=== PATIENT | male | born 1955 | race Caucasian/White ===

== ENCOUNTER 2016-07-05 23:43 | Emergency (ER) | payer BC, MEDICARE ==
[2016-07-05] MEDS ORDERED: Sodium Chloride 0.9% 1000 ML 1,000 ML IV SCH (23:45)
[2016-07-05] MEDS ORDERED: Phenergan 25 MG INJ IV ONE (23:54)
--- NOTE | 2016-07-05 23:57 | ERPHSYRPT ---
- History of Present Illness Time Seen by Provider: 07/05/16 23:49 Source: patient Exam Limitations: no limitations Patient Subjective Stated Complaint: PATIENT BECAME DIZZY HEAD FELT FUIZZY LIOGHTHEADEDNESS AND TRAVELED FROM HIS KNECK RTO HIS ARMS WHEN HE LAID DOWN Triage Nursing Assessment: PT ALERT AND ORIENTED X3, HAND CANDY DIPPER HAND STRONG AND EQUAL , FACIAL SYMETRY INTACT, SPEECH CLEAR NO DIFFICULTY ENNUNCIATING OR EXPRESSING THOUHTS. LEG STRENGTH GOOD AND INTACT BIALTERAL Physician History: ABOUT 2.5 HOURS AGO PT STARTED WITH DIZZINESS(OFF BALANCE) WITH DYSESTHESIA OF BOTH UPPER EXTREMITIES. PT ALSO C/O NASAL CONGESTION AND COUGH FOR THE PAST WEEK. PT DENIES FEVER, NAUSEA, VOMITING, ABDOMINAL PAIN, CHEST PAIN, SHORTNESS OF AIR. Allergies/Adverse Reactions: No Known Drug Allergies Allergy (Verified 02/02/16 21:33) Home Medications: Amitriptyline HCl 10 mg [Elavil 10 mg] 100 mg PO HS 05/04/14 [History] Clonazepam [Klonopin] 1 mg PO BID 05/04/14 [History] Esomeprazole Magnesium [Nexium] 40 mg PO HS 05/04/14 [History] Glipizide 10 mg [Glucotrol 10 MG] 10 mg PO BID 05/04/14 [History] Insulin Glargine [Lantus Insulin] 30 units SQ HS 05/04/14 [History] Paroxetine HCl [Paxil] 20 mg PO DAILY 05/04/14 [History] Simvastatin 40 mg PO HS 05/04/14 [History] Gabapentin 600 mg PO TID 11/21/15 [History] Levothyroxine Sodium 150 Mcg [Synthroid 150 Mcg] 150 mcg PO DAILY 11/21/15 [History] Losartan Potassium 50 mg PO HS 11/21/15 [History] Verapamil HCl Sr 180 mg [Isoptin Sr 180Mg] 180 mg PO HS 11/21/15 [History] Hx Tetanus, Diphtheria Vaccination/Date Given: Yes Hx Influenza Vaccination/Date Given: Yes Hx Pneumococcal Vaccination/Date Given: Yes Immunizations Up to Date: Yes - Review of Systems Constitutional: No Fever Ears, Nose, & Throat: Nose Congestion Respiratory: Cough, No Dyspnea Cardiac: No Chest Pain Abdominal/Gastrointestinal: No Abdominal Pain, No Nausea, No Vomiting Neurological: Dizziness, Sensory Changes, No Headache Endocrine: No Excessive Sweating All Other Systems: Reviewed and Negative - Past Medical History Pertinent Past Medical History: Yes Neurological History: Peripheral Neuropathy ENT History: No Pertinent History Cardiac History: Arrhythmia, Hypertension Respiratory History: COPD Endocrine Medical History: Diabetes Type II, Hypothyroidism Musculoskeletal History: No Pertinent History GI Medical History: GERD History: No Pertinent History Psycho-Social History: Anxiety, Depression Male Reproductive Disorders: Prostate Problems Other Medical History: A-fib - Past Surgical History Past Surgical History: No Neuro Surgical History: No Pertinent History Cardiac: No Pertinent History Respiratory: No Pertinent History Gastrointestinal: No Pertinent History Genitourinary: No Pertinent History Musculoskeletal: No Pertinent History Male Surgical History: No Pertinent History - Social History Smoking Status: Never smoker Exposure to second hand smoke: Yes (family/sister) Drug Use: none Patient Lives Alone: No - Nursing Vital Signs Nursing Vital Signs: Initial Vital Signs Temperature 98.9 F Temperature Source Oral Pulse Rate 66 Respiratory Rate 20 Blood Pressure [] 130/80 Pain Intensity 1 - Physical Exam General Appearance: alert Eye Exam: PERRL/EOMI Ears, Nose, Throat Exam: moist mucous membranes, pharyngeal erythema, other ( CERUMEN OCCLUSION OF BOTH EARS) Neck Exam: normal inspection, No carotid bruit Respiratory Exam: lungs clear Cardiovascular Exam: normal heart sounds Gastrointestinal/Abdomen Exam: soft, normal bowel sounds Back Exam: normal range of motion Extremity Exam: normal inspection, No pedal edema Neurologic Exam: alert, cooperative, normal mood/affect, sensation nml, No motor deficits, No motor weakness, No slurred speech Skin Exam: warm, dry SpO2 Interpretation: normal SpO2: 99 Oxygen Delivery: Room Air - Course Nursing assessment & vital signs reviewed: Yes EKG Interpreted by Me: RATE (71), Sinus Rhythm, Left Hilton Deviation, NORMAL INTERVALS - Radiology Exams Chest X-ray Interpretation: Interpreted by me, No Pneumonia Ordered Tests: Active Orders 24 hr Category Date Time Status Rate Analyst STAT Care 07/05/16 23:54 Active Clean Catch Urine Specimen STAT Care 07/05/16 23:54 Active EKG-ER Only STAT Care 07/05/16 23:54 Active IV Insertion STAT Care 07/05/16 23:54 Active CHEST 1 VIEW (PORTABLE) Stat Exams 07/05/16 23:54 Taken CBC W DIFF Stat Lab 07/05/16 23:54 Completed CMP Stat Lab 07/05/16 23:54 Completed CULTURE, THROAT Stat Lab 07/06/16 00:47 Received MAGNESIUM Stat Lab 07/05/16 23:54 Completed Garvin Screen Stat Lab 07/06/16 00:45 Completed STREP SCREEN-BETA A Stat Lab 07/06/16 00:47 Completed TROPONIN Stat Lab 07/05/16 23:54 Completed Medication Summary Generic Name Dose Route Start Last Admin Trade Name Freq PRN Reason Stop Dose Admin Sodium Chloride 1,000 mls @ 100 mls/hr 07/05/16 23:45 07/06/16 00:28 Sodium Chloride 0.9% 1000 Ml IV 08/04/16 23:44 100 mls/hr .Q10H JONAH Administration Magnesium Oxide 400 mg 07/06/16 10:00 Mag-Ox 400 PO 08/05/16 09:59 BID JONAH Discontinued Medications Generic Name Dose Route Start Last Admin Trade Name Freq PRN Reason Stop Dose Admin Sodium Chloride Confirm 07/06/16 00:21 Sodium Chloride 0.9% 1000 Ml Administered 07/06/16 00:22 Dose 1,000 mls @ ud .ROUTE .STK-MED ONE Promethazine HCl 12.5 mg 07/05/16 23:54 07/06/16 00:28 Phenergan 25 Mg Inj IV 07/05/16 23:55 12.5 mg STAT ONE Administration Promethazine HCl Confirm 07/06/16 00:21 Phenergan 25 Mg Inj Administered 07/06/16 00:22 Dose 25 mg .ROUTE .STK-MED ONE Lab/Rad Data: Laboratory Result Diagrams 07/06/16 00:15 07/06/16 00:15 Laboratory Results 07/06/16 07/06/16 07/06/16 Range/Units 00:47 00:47 00:45 WBC (4.0-10.5) K/mm3 RBC (4.1-5.6) M/mm3 Hgb (12.5-18.0) gm/dl Hct (42-50) % MCV (78-100) fl MCH (26-32) pg MCHC (32-36) g/dl RDW (11.5-14.0) % Plt Count (150-450) K/mm3 MPV (6-9.5) fl Gran % (36.0-66.0) % Lymphocytes % (24.0-44.0) % Monocytes % (0.0-12.0) % Eosinophils % (0.00-5.0) % Basophils % (0.0-0.4) % Basophils # (0-0.4) Sodium (136-145) mEq/L Potassium (3.5-5.1) mEq/L Chloride (98-107) mEq/L Carbon Dioxide (21-32) mEq/L Anion Gap (5-15) MEQ/L BUN (9-20) mg/dL Creatinine (0.55-1.30) mg/dl Estimated GFR ML/MIN Glucose (70-110) MG/DL Calcium (8.5-10.1) mg/dL Magnesium (1.8-2.4) mg/dL Total Bilirubin (0.2-1.0) mg/dL AST (15-37) U/L ALT (12-78) U/L Alkaline Phosphatase (46-116) U/L Troponin I (0.000-0.056) ng/ml Serum Total Protein (6.4-8.2) gm/dL Albumin (3.4-5.0) g/dL Ur Collection Type Urine Color (YELLOW) Urine Appearance (CLEAR) Urine pH (5-6) Ur Specific [place] (1.005-1.025) Urine Protein (Negative) Urine Glucose (UA) (NEGATIVE) mg/dL Urine Ketones (NEGATIVE) Urine Nitrite (NEGATIVE) Urine Bilirubin (NEGATIVE) Urine Urobilinogen (0-1) mg/dL Urine WBC (Auto) (NEGATIVE) Urine RBC (Auto) (0-5) Srinivasa/ul Urine Opiates Level (NEGATIVE) Ur Methadone (NEGATIVE) Urine Barbiturates (NEGATIVE) Ur Phencyclidine (PCP) (NEGATIVE) Urine Amphetamine (NEGATIVE) U Benzodiazepine Level (NEGATIVE) Urine Cocaine (NEGATIVE) Urine Marijuana (THC) (NEGATIVE) Monoscreen POSITIVE (Negative) Influenza Type A Ag NEGATIVE (NEGATIVE) Influenza Type B Ag NEGATIVE (NEGATIVE) RSV (PCR) NEGATIVE (Negative) Streptococcus Screen NEGATIVE (Negative) Specimen Received 07/06/16 07/06/16 07/05/16 Range/Units 00:15 00:15 00:30 WBC 9.0 (4.0-10.5) K/mm3 RBC 4.16 (4.1-5.6) M/mm3 Hgb 11.3 L (12.5-18.0) gm/dl Hct 35.9 L (42-50) % MCV 86.3 (78-100) fl MCH 27.1 (26-32) pg MCHC 31.5 L (32-36) g/dl RDW 13.9 (11.5-14.0) % Plt Count 265 (150-450) K/mm3 MPV 9.4 (6-9.5) fl Gran % 69.7 H (36.0-66.0) % Lymphocytes % 15.0 L (24.0-44.0) % Monocytes % 13.3 H (0.0-12.0) % Eosinophils % 1.8 (0.00-5.0) % Basophils % 0.2 (0.0-0.4) % Basophils # 0.02 (0-0.4) Sodium 131 L (136-145) mEq/L Potassium 5.1 (3.5-5.1) mEq/L Chloride 98 (98-107) mEq/L Carbon Dioxide 24.0 (21-32) mEq/L Anion Gap 14.0 (5-15) MEQ/L BUN 12 (9-20) mg/dL Creatinine 0.82 (0.55-1.30) mg/dl Estimated GFR > 60 ML/MIN Glucose 81 (70-110) MG/DL Calcium 8.9 (8.5-10.1) mg/dL Magnesium 1.5 L (1.8-2.4) mg/dL Total Bilirubin 0.2 (0.2-1.0) mg/dL AST 23 (15-37) U/L ALT 27 (12-78) U/L Alkaline Phosphatase 47 (46-116) U/L Troponin I < 0.017 (0.000-0.056) ng/ml Serum Total Protein 7.2 (6.4-8.2) gm/dL Albumin 3.3 L (3.4-5.0) g/dL Ur Collection Type Urine Color (YELLOW) Urine Appearance (CLEAR) Urine pH (5-6) Ur Specific [place] (1.005-1.025) Urine Protein (Negative) Urine Glucose (UA) (NEGATIVE) mg/dL Urine Ketones (NEGATIVE) Urine Nitrite (NEGATIVE) Urine Bilirubin (NEGATIVE) Urine Urobilinogen (0-1) mg/dL Urine WBC (Auto) (NEGATIVE) Urine RBC (Auto) (0-5) Srinivasa/ul Urine Opiates Level NEG. (NEGATIVE) Ur Methadone NEG. (NEGATIVE) Urine Barbiturates NEG. (NEGATIVE) Ur Phencyclidine (PCP) NEG. (NEGATIVE) Urine Amphetamine NEG. (NEGATIVE) U Benzodiazepine Level NEG. (NEGATIVE) Urine Cocaine NEG. (NEGATIVE) Urine Marijuana (THC) NEG. (NEGATIVE) Monoscreen (Negative) Influenza Type A Ag (NEGATIVE) Influenza Type B Ag (NEGATIVE) RSV (PCR) (Negative) Streptococcus Screen (Negative) Specimen Received 07/05/16 Range/Units 00:30 WBC (4.0-10.5) K/mm3 RBC (4.1-5.6) M/mm3 Hgb (12.5-18.0) gm/dl Hct (42-50) % MCV (78-100) fl MCH (26-32) pg MCHC (32-36) g/dl RDW (11.5-14.0) % Plt Count (150-450) K/mm3 MPV (6-9.5) fl Gran % (36.0-66.0) % Lymphocytes % (24.0-44.0) % Monocytes % (0.0-12.0) % Eosinophils % (0.00-5.0) % Basophils % (0.0-0.4) % Basophils # (0-0.4) Sodium (136-145) mEq/L Potassium (3.5-5.1) mEq/L Chloride (98-107) mEq/L Carbon Dioxide (21-32) mEq/L Anion Gap (5-15) MEQ/L BUN (9-20) mg/dL Creatinine (0.55-1.30) mg/dl Estimated GFR ML/MIN Glucose (70-110) MG/DL Calcium (8.5-10.1) mg/dL Magnesium (1.8-2.4) mg/dL Total Bilirubin (0.2-1.0) mg/dL AST (15-37) U/L ALT (12-78) U/L Alkaline Phosphatase (46-116) U/L Troponin I (0.000-0.056) ng/ml Serum Total Protein (6.4-8.2) gm/dL Albumin (3.4-5.0) g/dL Ur Collection Type CLEAN CATCH Urine Color YELLOW (YELLOW) Urine Appearance CLEAR (CLEAR) Urine pH 6.0 (5-6) Ur Specific [place] <=1.005 (1.005-1.025) Urine Protein NEGATIVE (Negative) Urine Glucose (UA) NEGATIVE (NEGATIVE) mg/dL Urine Ketones NEGATIVE (NEGATIVE) Urine Nitrite NEGATIVE (NEGATIVE) Urine Bilirubin NEGATIVE (NEGATIVE) Urine Urobilinogen 0.2 (0-1) mg/dL Urine WBC (Auto) NEGATIVE (NEGATIVE) Urine RBC (Auto) NEGATIVE (0-5) Srinivasa/ul Urine Opiates Level (NEGATIVE) Ur Methadone (NEGATIVE) Urine Barbiturates (NEGATIVE) Ur Phencyclidine (PCP) (NEGATIVE) Urine Amphetamine (NEGATIVE) U Benzodiazepine Level (NEGATIVE) Urine Cocaine (NEGATIVE) Urine Marijuana (THC) (NEGATIVE) Monoscreen (Negative) Influenza Type A Ag (NEGATIVE) Influenza Type B Ag (NEGATIVE) RSV (PCR) (Negative) Streptococcus Screen (Negative) Specimen Received [id number] - Departure Time of Disposition: 02:13 Departure Disposition: Home Clinical Impression: DIZZINESS, HYPOMAGNESEMIA, INFECTIOUS MONONUCLEOSIS Condition: Fair Critical Care Time: No Referrals: MARLO KING [Primary Care Provider] - Instructions: Mononucleosis Additional Instructions: FOLLOW UP WITH PRIVATE DOCTOR TOMORROW. Prescriptions: Meclizine HCl 25 mg [Antivert 25 mg] 25 mg PO Q8H PRN PRN #20 tablet PRN Reason: Dizziness
[2016-07-06 00:19] LABS: BASOPHIL % 0.2 % (0.0-0.4); Eosinophil % 1.8 % (0.00-5.0); Granulocytes % 69.7 % (36.0-66.0); Mean Cell Volume 86.3 fl (78-100); Mean Platelet Volume 9.4 fl (6-9.5); Monocytes % 13.3 % (0.0-12.0); Platelet Count 265 K/mm3 (150-450); Red Blood Count 4.16 M/mm3 (4.1-5.6); Red Cell Distribution Width 13.9 % (11.5-14.0)
[2016-07-06 00:20] LABS: Mean Corpuscular Hemoglobin 27.1 pg (26-32)
[2016-07-06] MEDS ORDERED: Phenergan 25 MG INJ ONE (00:21)
[2016-07-06] MEDS ORDERED: Sodium Chloride 0.9% 1000 ML 1,000 ML ONE (00:21)
[2016-07-06 00:42] LABS: ALBUMIN 3.3 g/dL (3.4-5.0); ALKALINE PHOSPHATASE 47 U/L (46-116); BILIRUBIN,TOTAL 0.2 mg/dL (0.2-1.0); BLOOD UREA NITROGEN 12 mg/dL (9-20); CHLORIDE 98 mEq/L (98-107); Glucose 81 MG/DL (70-110); MAGNESIUM 1.5 mg/dL (1.8-2.4); Potassium 5.1 mEq/L (3.5-5.1); SGOT/AST 23 U/L (15-37); SGPT/ALT 27 U/L (12-78); SODIUM 131 mEq/L (136-145); Total Protein 7.2 gm/dL (6.4-8.2)
[2016-07-06 00:43] LABS: TROPONIN < 0.017 ng/ml (0.000-0.056)
[2016-07-06 00:45] LABS: COMPLETE URINE MICROSCOPIC? NO; Collection Type CLEAN CATCH
[2016-07-06 01:57] VITALS: BP 130/80; PULSE 66
[2016-07-06 02:13] VITALS: O2SAT 99
--- NOTE | 2016-07-06 09:18 | XRAY ---
Indication: Dizziness. Comparison: February 02, 2016. Portable chest again hyperinflated with blunting of both costophrenic angles. No focal infiltrate, consolidation, or large effusion. Heart is not enlarged and thorax intact again with mild osteopenia and degenerative changes. Impression: Nonacute hyperinflated chest with chronic features.
[2016-07-06] MEDS ORDERED: MAG-OX 400 PO SCH (10:00)
== END 2016-07-06 02:31 | disposition home or self-care (01) ==
LOC: ED 23:43
DX: R42 Dizziness and giddiness (principal); E83.42 Hypomagnesemia; B27.90 Infectious mononucleosis, unspecified without complication; R20.8 Other disturbances of skin sensation; R09.81 Nasal congestion; R05 Cough; E11.9 Type 2 diabetes mellitus without complications; I10 Essential (primary) hypertension; E03.9 Hypothyroidism, unspecified; Z79.84 Long term (current) use of oral hypoglycemic drugs; Z79.4 Long term (current) use of insulin
CPT/HCPCS: 36000; 36415; 71010; 80053; 80307; 81002; 83735; 84484; 85025; 86308; 87070; 87430; 87631; 93005; 93041; 96360; 96361; 96374; 99283; 99284; J2550

== ENCOUNTER 2016-11-12 20:43 | Emergency (ER) | payer BC, MEDICARE ==
[2016-11-12] MEDS ORDERED: Phenergan 25 MG INJ IV ONE (20:54)
[2016-11-12] MEDS ORDERED: Sodium Chloride 0.9% 1000 ML 1,000 ML IV STA (20:58)
--- NOTE | 2016-11-12 21:00 | ERPHSYRPT ---
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 alert/oriented - some facial droop on the left side - wandering speech. skin pwd - no rash/injury. FSBS: 200. resps easy - labored per exertion Physician History: FOR ABOUT THE PAST 11 HOURS PT HAS HAD DIZZINESS(DISEQUILIBRIUM) AND THIRST; FOR THE PAST 10 DAYS SHORTNESS OF AIR. PT STATES HE FEELS LIKE HE DID WITH HIS PREVIOUS 2 STROKES LAST YEAR. PT DENIES CHEST PAIN, FEVER, VOMITING. Allergies/Adverse Reactions: No Known Drug Allergies Allergy (Verified 11/12/16 20:46) Home Medications: Amitriptyline HCl 10 mg [Elavil 10 mg] 100 mg PO HS 05/04/14 [History] Clonazepam [Klonopin] 1 mg PO BID 05/04/14 [History] Esomeprazole Magnesium [Nexium] 40 mg PO HS 05/04/14 [History] Glipizide 10 mg [Glucotrol 10 MG] 10 mg PO BID 05/04/14 [History] Insulin Glargine [Lantus Insulin] 30 units SQ HS 05/04/14 [History] Paroxetine HCl [Paxil] 20 mg PO DAILY 05/04/14 [History] Simvastatin 40 mg PO HS 05/04/14 [History] Gabapentin 600 mg PO TID 11/21/15 [History] Levothyroxine Sodium 150 Mcg [Synthroid 150 Mcg] 150 mcg PO DAILY 11/21/15 [History] Losartan Potassium 50 mg PO HS 11/21/15 [History] Verapamil HCl Sr 180 mg [Isoptin Sr 180Mg] 180 mg PO HS 11/21/15 [History] Hx Tetanus, Diphtheria Vaccination/Date Given: No Hx Influenza Vaccination/Date Given: Yes Hx Pneumococcal Vaccination/Date Given: Yes Immunizations Up to Date: No - Review of Systems Constitutional: Other (THIRST), No Fever Respiratory: Dyspnea Cardiac: No Chest Pain Abdominal/Gastrointestinal: No Vomiting Neurological: Dizziness All Other Systems: Reviewed and Negative - Past Medical History Pertinent Past Medical History: Yes Neurological History: Peripheral Neuropathy ENT History: No Pertinent History Cardiac History: Arrhythmia, Hypertension Respiratory History: COPD Endocrine Medical History: Diabetes Type II, Hypothyroidism Musculoskeletal History: No Pertinent History GI Medical History: GERD History: No Pertinent History Psycho-Social History: Anxiety, Depression Male Reproductive Disorders: Prostate Problems Other Medical History: A-fib - Past Surgical History Past Surgical History: No Neuro Surgical History: No Pertinent History Cardiac: No Pertinent History Respiratory: No Pertinent History Gastrointestinal: No Pertinent History Genitourinary: No Pertinent History Musculoskeletal: No Pertinent History Male Surgical History: No Pertinent History - Social History Smoking Status: Never smoker Exposure to second hand smoke: No Drug Use: none Patient Lives Alone: No - Nursing Vital Signs Nursing Vital Signs: Initial Vital Signs Temperature 98.2 F Pulse Rate 70 Respiratory Rate 18 Blood Pressure [] 99/68 Pain Intensity 5 - Physical Exam General Appearance: alert Eye Exam: PERRL/EOMI Ears, Nose, Throat Exam: dry mucous membranes Neck Exam: normal inspection Respiratory Exam: lungs clear Cardiovascular Exam: murmur (1/6 SYSTOLIC MURMUR) Gastrointestinal/Abdomen Exam: soft, normal bowel sounds Back Exam: normal range of motion Extremity Exam: swelling (+1 ANKLE EDEMA BILATERALLY) Neurologic Exam: alert, cooperative, facial droop (SLIGHT LEFT FACIAL DROOP), other (NO BABINSKI PRESENT) Skin Exam: abrasion (HEALING SUPERFICIAL ABRASIONS OVER LEFT LEG), pale SpO2 Interpretation: normal SpO2: 98 Oxygen Delivery: Room Air - Course Nursing assessment & vital signs reviewed: Yes EKG Interpreted by Me: RATE (68), Sinus Rhythm, NORMAL AXIS, NORMAL INTERVALS - Radiology Exams Chest X-ray Interpretation: Interpreted by me, No Pneumonia - CT Exams Head CT Interpretation: Discussed w/radiologist (COMPARED TO 02/02/16: NEW FINDING FOR MODERATE SIZED OLD LEFT FRONTOPARIETAL INFARCT. NO ACUTE FINDINGS.) Ordered Tests: Active Orders 24 hr Category Date Time Status Entry Level Finance STAT Care 11/12/16 20:54 Active Clean Catch Urine Specimen STAT Care 11/12/16 20:54 Active EKG-ER Only STAT Care 11/12/16 20:54 Active IV Insertion STAT Care 11/12/16 20:54 Active Oxygen-ED Only NASAL CANNULA 2 lpm Care 11/12/16 20:54 Active Pulse Oximetry (ED) STAT Care 11/12/16 20:54 Active CHEST 1 VIEW (PORTABLE) Stat Exams 11/12/16 20:55 Taken HEAD WITHOUT CONTRAST [CT] Stat Exams 11/12/16 21:00 Taken AMYLASE Stat Lab 11/12/16 21:15 Completed BLOOD CULTURE Stat Lab 11/12/16 21:20 Received CBC W DIFF Stat Lab 11/12/16 21:15 Completed CMP Stat Lab 11/12/16 21:15 Completed CULTURE, THROAT Stat Lab 11/12/16 21:20 Received LIPASE Stat Lab 11/12/16 21:15 Completed MAGNESIUM Stat Lab 11/12/16 21:15 Completed Occult Blood,Stool Other Stat Lab 11/12/16 22:30 Completed PROTIME WITH INR Stat Lab 11/12/16 21:15 Completed PTT Stat Lab 11/12/16 21:15 Completed STREP SCREEN-BETA A Stat Lab 11/12/16 21:20 Completed TROPONIN Q3H Lab 11/12/16 21:15 Completed TROPONIN Q3H Lab 11/13/16 00:00 Ordered TROPONIN Q3H Lab 11/13/16 03:00 Ordered TROPONIN Q3H Lab 11/13/16 06:00 Ordered TROPONIN Q3H Lab 11/13/16 09:00 Ordered UA W/RFX UR CULTURE Stat Lab 11/12/16 20:55 Ordered Medication Summary Discontinued Medications Generic Name Dose Route Start Last Admin Trade Name Mirzaq PRN Reason Stop Dose Admin Sodium Chloride 1,000 mls @ 999 mls/hr 11/12/16 20:58 11/12/16 21:14 Sodium Chloride 0.9% 1000 Ml IV 11/12/16 21:58 999 mls/hr .Q1H1M STA Administration Sodium Chloride Confirm 11/12/16 21:02 Sodium Chloride 0.9% 1000 Ml Administered 11/12/16 21:03 Dose 1,000 mls @ ud .ROUTE .STK-MED ONE Magnesium Sulfate/Dextrose 100 mls @ 200 mls/hr 11/12/16 22:35 11/12/16 22:47 Magnesium 1 Gm / 100 Ml D5w IV 11/12/16 23:04 200 mls/hr STAT ONE Administration Magnesium Sulfate/Dextrose Confirm 11/12/16 22:45 Magnesium 1 Gm / 100 Ml D5w Administered 11/12/16 22:46 Dose 100 mls @ ud IV .STK-MED ONE Promethazine HCl 12.5 mg 11/12/16 20:54 11/12/16 21:14 Phenergan 25 Mg Inj IV 11/12/16 20:55 12.5 mg STAT ONE Administration Promethazine HCl Confirm 11/12/16 21:02 Phenergan 25 Mg Inj Administered 11/12/16 21:03 Dose 25 mg .ROUTE .STK-MED ONE Lab/Rad Data: Laboratory Result Diagrams 11/12/16 21:15 11/12/16 21:15 Laboratory Results 11/12/16 11/12/16 11/12/16 Range/Units 22:30 21:20 21:15 WBC (4.0-10.5) K/mm3 RBC (4.1-5.6) M/mm3 Hgb (12.5-18.0) gm/dl Hct (42-50) % MCV (78-100) fl MCH (26-32) pg MCHC (32-36) g/dl RDW (11.5-14.0) % Plt Count (150-450) K/mm3 MPV (6-9.5) fl Gran % (36.0-66.0) % Lymphocytes % (24.0-44.0) % Monocytes % (0.0-12.0) % Eosinophils % (0.00-5.0) % Basophils % (0.0-0.4) % Basophils # (0-0.4) INR (0.8-3.0) APTT (24.1-36.1) SECONDS Sodium (136-145) mEq/L Potassium (3.5-5.1) mEq/L Chloride (98-107) mEq/L Carbon Dioxide (21-32) mEq/L Anion Gap (5-15) MEQ/L BUN (9-20) mg/dL Creatinine (0.55-1.30) mg/dl Estimated GFR ML/MIN Glucose (70-110) MG/DL Calcium (8.5-10.1) mg/dL Magnesium (1.8-2.4) mg/dL Total Bilirubin (0.2-1.0) mg/dL AST (15-37) U/L ALT (12-78) U/L Alkaline Phosphatase (46-116) U/L Troponin I < 0.017 (0.000-0.056) ng/ml Serum Total Protein (6.4-8.2) gm/dL Albumin (3.4-5.0) g/dL Amylase (25-115) U/L Lipase (73-393) U/L Stool Occult Blood POSITIVE (Negative) Streptococcus Screen NEGATIVE (Negative) 11/12/16 11/12/16 11/12/16 Range/Units 21:15 21:15 21:15 WBC 7.8 (4.0-10.5) K/mm3 RBC 3.05 L (4.1-5.6) M/mm3 Hgb 7.2 L (12.5-18.0) gm/dl Hct 24.1 L (42-50) % MCV 79.0 (78-100) fl MCH 23.6 L (26-32) pg MCHC 29.9 L (32-36) g/dl RDW 15.9 H (11.5-14.0) % Plt Count 263 (150-450) K/mm3 MPV 10.2 H (6-9.5) fl Gran % 61.9 (36.0-66.0) % Lymphocytes % 23.6 L (24.0-44.0) % Monocytes % 11.9 (0.0-12.0) % Eosinophils % 2.1 (0.00-5.0) % Basophils % 0.5 (0.0-0.4) % Basophils # 0.04 (0-0.4) INR 1.32 (0.8-3.0) APTT 35.7 (24.1-36.1) SECONDS Sodium 130 L (136-145) mEq/L Potassium 5.2 H (3.5-5.1) mEq/L Chloride 96 L (98-107) mEq/L Carbon Dioxide 23.7 (21-32) mEq/L Anion Gap 15.7 H (5-15) MEQ/L BUN 13 (9-20) mg/dL Creatinine 1.09 (0.55-1.30) mg/dl Estimated GFR > 60 ML/MIN Glucose 184 H (70-110) MG/DL Calcium 8.7 (8.5-10.1) mg/dL Magnesium 1.4 L (1.8-2.4) mg/dL Total Bilirubin 0.20 (0.2-1.0) mg/dL AST 24 (15-37) U/L ALT 29 (12-78) U/L Alkaline Phosphatase 46 (46-116) U/L Troponin I (0.000-0.056) ng/ml Serum Total Protein 7.2 (6.4-8.2) gm/dL Albumin 3.5 (3.4-5.0) g/dL Amylase 31 (25-115) U/L Lipase 129 (73-393) U/L Stool Occult Blood (Negative) Streptococcus Screen (Negative) - Progress Discussed with : Other (SPOKE WITH MEGAN CHUNG N.P.(FOR DR DAVIS)([id number]) WHO ACCEPTED PT FOR TRANSFER TO [facility] A DIRECT ADMISSION.) - Departure Time of Disposition: 23:20 Departure Disposition: Transfer ([facility]) Clinical Impression: GI HEMORRHAGE, ANEMIA, HYPOMAGNESEMIA, COPD, HTN, DM, PN, HYPOTHYROIDISM, GERD , ANXIETY, DEPRESSION Condition: Stable Critical Care Time: No Referrals: MARLO KING [Primary Care Provider] -
[2016-11-12] MEDS ORDERED: Sodium Chloride 0.9% 1000 ML 1,000 ML ONE (21:02)
[2016-11-12] MEDS ORDERED: Phenergan 25 MG INJ ONE (21:02)
[2016-11-12 21:26] LABS: BASOPHIL % 0.5 % (0.0-0.4); Eosinophil % 2.1 % (0.00-5.0); Granulocytes % 61.9 % (36.0-66.0); Lymphocytes % 23.6 % (24.0-44.0); Mean Corpuscular Hemoglobin 23.6 pg (26-32); Mean Platelet Volume 10.2 fl (6-9.5); Monocytes % 11.9 % (0.0-12.0); Platelet Count 263 K/mm3 (150-450); Red Blood Count 3.05 M/mm3 (4.1-5.6); Red Cell Distribution Width 15.9 % (11.5-14.0); White Blood Count 7.8 K/mm3 (4.0-10.5)
[2016-11-12 21:39] LABS: INR 1.32 (0.8-3.0)
[2016-11-12 21:42] LABS: PTT 35.7 SECONDS (24.1-36.1)
[2016-11-12 21:52] LABS: ALBUMIN 3.5 g/dL (3.4-5.0); ALKALINE PHOSPHATASE 46 U/L (46-116); ANION GAP 15.7 MEQ/L (5-15); BLOOD UREA NITROGEN 13 mg/dL (9-20); CHLORIDE 96 mEq/L (98-107); Carbon Dioxide 23.7 mEq/L (21-32); Glucose 184 MG/DL (70-110); LIPASE 129 U/L (73-393); MAGNESIUM 1.4 mg/dL (1.8-2.4); Potassium 5.2 mEq/L (3.5-5.1); SGOT/AST 24 U/L (15-37); SGPT/ALT 29 U/L (12-78); SODIUM 130 mEq/L (136-145); Total Protein 7.2 gm/dL (6.4-8.2)
[2016-11-12] MEDS ORDERED: Magnesium 1 Gm / 100 Ml D5W*** 100 ML IV ONE ×2 (22:35→22:45)
[2016-11-12 22:55] VITALS: O2SAT 98
[2016-11-12 23:39] LABS: ADD URINE CULTURE? NO (NO); Bilirubin NEGATIVE (NEGATIVE); Blood NEGATIVE Ery/ul (0-5); COMPLETE URINE MICROSCOPIC? NO; Collection Type CLEAN CATCH; Glucose 50 mg/dL (NEGATIVE); Leukocyte Esterase NEGATIVE (NEGATIVE)
[2016-11-13 01:14] VITALS: BP 138/77; PULSE 68
--- NOTE | 2016-11-13 08:36 | XRAY ---
Indication: Short of breath. Comparison: July 06, 2016. Portable chest again hyperinflated without focal infiltrate, consolidation, or large effusion. Heart is not enlarged. Bony thorax intact again with mild osteopenia and degenerative changes. Impression: Stable nonacute chest with chronic features.
--- NOTE | 2016-11-13 08:38 | XRAY ---
Indication: Dizziness and short of breath. Prior CVA. Multiple contiguous axial images obtained through the head without contrast. Comparison: February 02, 2016. There is now moderate sized old left frontoparietal infarct. No acute intracranial hemorrhage, hydrocephalus, or mass effect. Miller-white matter differentiation maintained. Bony calvarium intact. Visualized paranasal sinuses and mastoid air cells are clear. 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 No acute intracranial abnormalities. CT DI 69.90
[2016-11-14 13:03] LABS: AB ID Interp Anti-M
== END 2016-11-13 01:22 | disposition short-term general hospital (02) ==
LOC: ED 20:43
DX: K92.2 Gastrointestinal hemorrhage, unspecified (principal); D64.9 Anemia, unspecified; E83.42 Hypomagnesemia; J44.9 Chronic obstructive pulmonary disease, unspecified; I10 Essential (primary) hypertension; E11.9 Type 2 diabetes mellitus without complications; J18.9 Pneumonia, unspecified organism; E03.9 Hypothyroidism, unspecified; K21.9 Gastro-esophageal reflux disease without esophagitis; F41.8 Other specified anxiety disorders; Z79.899 Other long term (current) drug therapy; Z79.84 Long term (current) use of oral hypoglycemic drugs; Z79.4 Long term (current) use of insulin; R42 Dizziness and giddiness
CPT/HCPCS: 36000; 36415; 70450; 71010; 80053; 81002; 82150; 82272; 83690; 83735; 84484; 85025; 85610; 85730; 86850; 86870; 86900; 86901; 86922; 87040; 87070; 87430; 93005; 93041; 96360; 96365; 96374; 99285; J2550; J3475